=== PATIENT | female | born 1955 | race Caucasian/White ===

== ENCOUNTER 2017-11-18 22:09 | Inpatient (IN) | END 2017-11-26 18:10 | disposition home health service (06) | DRG 871 ==

== ENCOUNTER 2017-12-12 16:05 | Inpatient (IN) | END 2017-12-15 13:19 | disposition home or self-care (01) | DRG 872 ==

== ENCOUNTER 2017-12-17 05:03 | Inpatient (IN) | END 2018-01-01 13:00 | disposition EXP | DRG 432 ==